=== PATIENT | female | born 1930 | race Caucasian/White ===

== ENCOUNTER 2016-11-05 12:21 | Emergency (ER) | payer MEDICARE ==
[2016-11-05 12:31] VITALS: TEMP 98.1; BMI 30.2
[2016-11-05] MEDS ORDERED: NS 1,000 ML IV ONE (12:35)
[2016-11-05] MEDS ORDERED: ONDANSETRON HCL 4 MG/2 ML VIAL IV ONE (12:35)
[2016-11-05 12:58] LABS: AUTOMATED BASOPHIL 0.6 % (0-2); AUTOMATED EOSINOPHIL 0.2 % (0-5); AUTOMATED LYMPH 14.4 % (17-44); AUTOMATED MONOCYTE 5.9 % (3-10); AUTOMATED NEUTROPHIL 78.9 % (45-76); MPV 8.4 fL (7.4-10.4)
--- NOTE | 2016-11-05 13:09 | DIRPT ---
CLINICAL DATA: Weakness. EXAM: PORTABLE CHEST 1 VIEW COMPARISON: 09/23/2016 FINDINGS: The heart size and mediastinal contours are within normal limits. There is no evidence of pulmonary edema, consolidation, pneumothorax, nodule or pleural fluid. The visualized skeletal structures are unremarkable. IMPRESSION: No active disease. Electronically Signed By: Jose L Nixon M.D. On: 11/05/2016 13:07
[2016-11-05 13:16] LABS: CALC CORRECTED 9.2 MG/DL (8.4-10.2); CALCIUM 8.9 MG/DL (8.4-10.2); CREATININE 1.1 MG/DL (0.52-1.04); TOTAL PROTEIN 7.1 G/DL (6.3-8.2)
[2016-11-05 13:20] LABS: PARTIAL THROMB. TIME 21.1 SEC (22-35); PT-INR 1.1
[2016-11-05] MEDS ORDERED: LABETALOL 20 MG/4 ML SYRINGE IV ONE (13:20)
--- NOTE | 2016-11-05 13:22 | EDPRACDOC ---
- General Information Chief Complaint: Generalized Weakness Stated Complaint: WEAKNESS/HYPERTENSION Time Seen by Provider: 11/05/16 12:31 Information Source: Patient, Web Site Developer Mode Of Arrival: Ambulance Home Medications: Home Medications Omeprazole 40 mg PO DAILY 04/28/16 Pramipexole Di-HCl [Mirapex] 0.25 mg PO TID 04/28/16 Ranitidine HCl 300 mg PO DAILY 04/28/16 Estrogens,Conjugated [Premarin] 0.625 mg PO DAILY 09/06/16 Furosemide [Lasix] 20 mg PO DAILY #30 tablet 09/19/16 CloNIDine (Antihypertensive) [Catapres] 0.1 mg PO DAILY PRN #30 tab 11/05/16 Desvenlafaxine Succinate [Pristiq] 50 mg PO DAILY 11/05/16 Etodolac 400 mg PO BID 11/05/16 Losartan/Hydrochlorothiazide [Losartan-Hctz 50-12.5 mg Tab] 1 tab PO DAILY 11/05 Megestrol Acetate [Megace] 40 mg PO DAILY #30 tab 11/05/16 Mirtazapine 15 mg PO QHS PRN 11/05/16 Allergies/Adverse Reactions: Allergies Allergy/AdvReac Type Severity Reaction Status Date / Time codeine Allergy Nausea/Vomi Verified 11/05/16 12:27 ting Penicillins Allergy Anaphylaxis Verified 11/05/16 12:27 * Sulfa (Sulfonamide Allergy Anaphylaxis Verified 11/05/16 12:27 Antibiotics) * - History of Present Illness Onset: several days Exact Onset of Symptoms: Unknown HPI: PT ADMITTED TO THE HOSPITAL ON 09/06 FOR A SBO. SHE HAD AN EXPL LAP WITH [facility]JAN ON 09/11. SHE WAS D/C'D ON 09/19. SHE WAS RE-ADMITTED ON 09/23 FOR CELLULITIS. SHE WAS D/C'D ON 09/29. [facility] PT SAID THAT SHE HAS BEEN VERY WEAK FOR THE PAST FEW DAYS. PT SAID THAT SHE HAS HAD N/V. PT RECENTLY RELEASED FROM [facility] ON 10/26. PT SAID SHE'S BEEN ABLE TO TAKE HER MEDS, BUT BP HAS REMAINED HIGH. PT DOES NOT WANT ANYTHING FOR NAUSEA NOW. Symptoms Started: Reports: Gradually Symptoms Description: Constant Weakness: Bilateral: Generalized Symptom Severity: Reports: Unable to performs ADL's Associated signs and symptoms:: Reports: Nausea ED Past Medical History - Patient Medical History Cardiac History: Reports: Hypertension, Congestive Heart Failure (remote history. No echocardiogram available.), Valvular Heart Disease Respiratory History: Reports: Pneumonia GI/ History: Reports: Urinary Tract Infection, Gastroesophageal Reflux Musculoskeletal History: Reports: Arthritis (FINGERS), Osteoarthritis Psychological History: Reports: Anxiety. Denies: Depression, Substance Use Disorder Surgical History: Reports: Cholecystectomy, Hysterectomy (Oophorectomy), Tonsillectomy/Adnoidectomy, Other (Bilateral knee replacements. Ex-lap for SBO Dr. Ackerman 08/2016.) - Family Medical History Reports: Cancer (2 sisters- breast ca). Denies: Hypertension, Diabetes, Stroke , Cardiac Disorders - Social Medical History Smoking Status: Never smoker Social History: Denies: Substance Use Disorder ETOH: None Substance Abuse: None Lives In: Home EDM Review of Systems - Review of Systems ROS Negative Except as Marked: Yes All systems reviewed and were negative except as marked Constitutional: Fatigue, Loss of Appetite, Weakness Gastrointestinal: Nausea, Vomiting - Physical Exam Constitutional: Alert (Awake), No apparent distress Oriented to: Time, Person, Place Last recorded Vital Signs: Last Vital Signs Temp 98.1 F 11/05/16 12:27 Pulse 83 11/05/16 12:27 Resp 18 11/05/16 12:27 BP 213/86 H 11/05/16 12:32 Pulse Ox 91 11/05/16 12:27 Oxygen Pulse Oxygen Saturation 91 O2 Device Room Air Oxygen Flow Rate Fraction of Inspired Oxygen ( FIO2) - HEENT Head: Normal ( normocephalic) Eye Exam: Normal (PERRL, EOMI, Sclera white) Oropharynx: Membranes Dry ENT EAC: Normal TMJ: Normal Nose: No Symptoms Reported (septum midline) Neck: Normal (FROM, trachea at midline) - Respiratory/Cardiovascular Respiratory: Normal - CTA (BBS clear to auscultation without adventitious sounds ) Cardiovascular: Normal (RRR without murmur, gallop or rub) - GI Auscultation: Normal (NABS) Palpation: Normal (Soft,No rebound or guarding, non distended) Tenderness: Non tender Tompkins's Sign: Negative - Musculoskeletal Back: Normal (Non-Tender) Extremities: Normal (Normal tone, Pulses 2+ No cyanosis or edema, FROM) - Integumentary Skin: Normal, Warm, Dry Lymphatics: Normal (no adenopathy) - Neurologic Memory Impaired: Normal Motor Function: Normal (Normal tone, Pulses 2+ No cyanosis or edema, FROM) Cranial Nerve: Normal (CN II-X11 intact sensation, strength 5/5) Cerebellar: Normal Mood Description: Normal Thought: Coherent Perception: Normal - Results 11/05/16 12:50 11/05/16 12:50 WBC 13.5 xk/uL (3.8-10.8) H 11/05/16 12:50 RBC 3.70 xM/uL (4.20-5.40) L 11/05/16 12:50 Hgb 11.5 g/dL (12.0-16.0) L 11/05/16 12:50 Hct 35.3 % (36-47) L 11/05/16 12:50 MCV 96 fL (81-99) 11/05/16 12:50 MCH 31.1 pg (27-32) 11/05/16 12:50 MCHC 32.6 g/dl (33-36) L 11/05/16 12:50 RDW 20.5 % (11.5-14.5) H 11/05/16 12:50 Plt Count 118 xk/uL (130-400) L 11/05/16 12:50 MPV 8.4 fL (7.4-10.4) 11/05/16 12:50 Neut % (Auto) 78.9 % (45-76) H 11/05/16 12:50 Lymph % (Auto) 14.4 % (17-44) L 11/05/16 12:50 [place] % (Auto) 5.9 % (3-10) 11/05/16 12:50 Eos % (Auto) 0.2 % (0-5) 11/05/16 12:50 Baso % (Auto) 0.6 % (0-2) 11/05/16 12:50 Absolute Neuts (auto) 10.53 xk/uL (1.7-8.2) H 11/05/16 12:50 Absolute Lymphs (auto) 1.89 xk/uL (0.65-4.75) 11/05/16 12:50 Sodium 140 mEq/L (137-146) 11/05/16 12:50 Potassium 4.6 mEq/L (3.5-5.1) 11/05/16 12:50 Chloride 106 mEq/L (98-107) 11/05/16 12:50 Carbon Dioxide 24 mMOL/L (22-33) 11/05/16 12:50 Anion Gap 15 mEq/L (8-16) 11/05/16 12:50 BUN 31 MG/DL (7-17) H 11/05/16 12:50 Creatinine 1.10 MG/DL (0.52-1.04) H 11/05/16 12:50 Estimated GFR (MDRD) 47 mL/min (>=60) L 11/05/16 12:50 Glucose 93 MG/DL (70-99) 11/05/16 12:50 Calculated Osmolality 276 MOs/Kg (270-290) 11/05/16 12:50 Calcium 8.9 MG/DL (8.4-10.2) 11/05/16 12:50 Corrected Calcium 9.2 MG/DL (8.4-10.2) 11/05/16 12:50 Total Bilirubin 0.8 MG/DL (0.2-1.3) 11/05/16 12:50 AST 29 IU/L (14-36) 11/05/16 12:50 ALT 30 IU/L (9-52) 11/05/16 12:50 Alkaline Phosphatase 99 IU/L (55-165) 11/05/16 12:50 Total Protein 7.1 G/DL (6.3-8.2) 11/05/16 12:50 Albumin 3.7 G/DL (3.5-5.0) 11/05/16 12:50 Lipase Cancelled 11/05/16 12:50 Lab Results 11/05/16 11/05/16 11/05/16 12:50 12:50 12:50 WBC 13.5 H RBC 3.70 L Hgb 11.5 L Hct 35.3 L MCV 96 MCH 31.1 MCHC 32.6 L RDW 20.5 H Plt Count 118 L MPV 8.4 Neut % (Auto) 78.9 H Lymph % (Auto) 14.4 L [place] % (Auto) 5.9 Eos % (Auto) 0.2 Baso % (Auto) 0.6 Absolute Neuts (auto) 10.53 H Absolute Lymphs (auto) 1.89 Sodium 140 Potassium 4.6 Chloride 106 Carbon Dioxide 24 Anion Gap 15 BUN 31 H Creatinine 1.10 H Estimated GFR (MDRD) 47 L Glucose 93 Calculated Osmolality 276 Calcium 8.9 Corrected Calcium 9.2 Total Bilirubin 0.8 AST 29 ALT 30 Alkaline Phosphatase 99 Total Protein 7.1 Albumin 3.7 Lipase Cancelled - EKG EKG #1 EKG Time: 12:30 -: Yes EKG interpreted by me Rate: bpm: 88 [place]: Normal Rhythm: NSR Block: None Hypertrophy: None ST: Normal Comparison: 09/23/16 - Diagnostic Imaging Chest Image interpreted by: Radiologist No active disease. - Additional Information PT D/W SW WHO WILL HELP ARRANGE HOME PT. ALSO ASKS FOR SOMETHING TO HELP WITH PT'S APPETITE. Decision Time to Discharge: 14:53 - Departure Yes I personally saw and evaluated the patient. Disposition: Home Condition: Fair Final Diagnosis: Failure to thrive, Dehydration, Hypertension, Anorexia Instructions: Weakness (General), Chronic Hypertension (ED) Education/Counseling Given To: Patient, Family Member Education/Counseling Given Regarding: Diagnosis, Treatment, Follow Up Prescriptions: CloNIDine (Antihypertensive) [Catapres] 0.1 mg PO DAILY PRN #30 tab PRN Reason: Sbp Above 160 Megestrol Acetate [Megace] 40 mg PO DAILY #30 tab
--- NOTE | 2016-11-05 14:26 | DIRPT ---
CLINICAL DATA: Weakness and hypertension. EXAM: CT ABDOMEN AND PELVIS WITHOUT CONTRAST TECHNIQUE: Multidetector CT imaging of the abdomen and pelvis was performed following the standard protocol without IV contrast. COMPARISON: 09/06/2016 FINDINGS: Bowel appears unremarkable with resolution of previously imaged small bowel obstruction. No dilated bowel loops or evidence of inflammatory process. No free air, free fluid or abscess identified. Unenhanced appearance of the liver, pancreas, spleen, adrenal glands and kidneys are unremarkable. The gallbladder has been removed. No hernias, masses or enlarged lymph nodes are seen. The bladder is unremarkable. The lumbar spine demonstrates stable spondylosis with associated rightward convex scoliosis and anterolisthesis of L4 on L5 by approximately 6 mm and anterolisthesis of L5 on S1 of approximately 10 mm. IMPRESSION: No acute findings. Resolution of previously imaged small bowel obstruction. Electronically Signed By: Jose L Nixon M.D. On: 11/05/2016 14:23
[2016-11-05 14:31] LABS: LEUKOCYTES/URINE NEG (NEGATIVE); NITRITE/URINE NEG (NEGATIVE); RBC/URINE 0-2 (0-5); URINE OCCULT BLOOD NEG (NEG/TRACE)
[2016-11-05 15:25] VITALS: BP 176/74; PULSE 84
== END 2016-11-05 15:25 | disposition home or self-care (01) ==
LOC: ED 12:21
DX: R62.7 Adult failure to thrive (principal); E86.0 Dehydration; I10 Essential (primary) hypertension; R63.0 Anorexia; Z79.899 Other long term (current) drug therapy
CPT/HCPCS: 36415; 71010; 74176; 80053; 81001; 83690; 84484; 85025; 85610; 85730; 87086; 93005; 99284; A9270; J3490

== ENCOUNTER 2016-11-11 10:41 | Emergency (ER) | payer MEDICARE, OTHER ==
[2016-11-11 11:12] VITALS: TEMP 98.4; BMI 20.7
--- NOTE | 2016-11-11 11:28 | EDPRACDOC ---
- General Information Chief Complaint: Altered Mental Status Stated Complaint: STROKE Time Seen by Provider: 11/11/16 11:25 Information Source: Family, Manager Search Home Medications: Home Medications Omeprazole 40 mg PO DAILY 04/28/16 Pramipexole Di-HCl [Mirapex] 0.25 mg PO TID 04/28/16 Ranitidine HCl 300 mg PO DAILY 04/28/16 Estrogens,Conjugated [Premarin] 0.625 mg PO DAILY 09/06/16 Furosemide [Lasix] 20 mg PO DAILY #30 tablet 09/19/16 CloNIDine (Antihypertensive) [Catapres] 0.1 mg PO DAILY PRN #30 tab 11/05/16 Desvenlafaxine Succinate [Pristiq] 50 mg PO DAILY 11/05/16 Etodolac 400 mg PO BID 11/05/16 Losartan/Hydrochlorothiazide [Losartan-Hctz 50-12.5 mg Tab] 1 tab PO DAILY 11/05 Megestrol Acetate [Megace] 40 mg PO DAILY #30 tab 11/05/16 Mirtazapine 15 mg PO QHS PRN 11/05/16 Ciprofloxacin HCl [Cipro] 500 mg PO .BID X 7D 11/11/16 Allergies/Adverse Reactions: Allergies Allergy/AdvReac Type Severity Reaction Status Date / Time codeine Allergy Nausea/Vomi Verified 11/05/16 12:27 ting Penicillins Allergy Anaphylaxis Verified 11/05/16 12:27 * Sulfa (Sulfonamide Allergy Anaphylaxis Verified 11/05/16 12:27 Antibiotics) * - History of Present Illness Onset: 3 days Exact Onset of Symptoms: Unknown HPI: NOT ACTING RIGHT FOR MANY WEEKS. SEEN HERE ON 11/05; SEE RECORD ON THAT DATE INCLUDING CT OF ABDOMEN. BEING TX FOR UTI WITH CIPRO. PT DENIES PAIN. PT SEEN AT HOME BY DR. YI ON SATURDAY AND GIVEN MEDS FOR UTI Symptoms began: Gradually Duration: Since Onset Symptoms Currently: Reports: Improved Altered Quality: Reports: Change in Behavior Altered Severity: Reports: Mild Recent Symptoms of: Reports: None Relevant History: Reports: None - Treatment Prior to ED Arrival Reported Medications/Treatment [facility] Treatment BLS IV No ED Past Medical History - History Reviewed Yes Nurses notes reviewed and agree except as marked - Patient Medical History Cardiac History: Reports: Hypertension, Congestive Heart Failure (remote history. No echocardiogram available.), Valvular Heart Disease Respiratory History: Reports: Pneumonia GI/ History: Reports: Urinary Tract Infection, Gastroesophageal Reflux Musculoskeletal History: Reports: Arthritis (FINGERS), Osteoarthritis Psychological History: Reports: Anxiety. Denies: Depression, Substance Use Disorder Systemic History: Denies: Cancer Surgical History: Reports: Cholecystectomy, Hysterectomy (Oophorectomy), Tonsillectomy/Adnoidectomy, Other (Bilateral knee replacements. Ex-lap for SBO Dr. Ackerman 08/2016.) - Family Medical History Reports: Cancer (2 sisters- breast ca). Denies: Hypertension, Diabetes, Stroke , Cardiac Disorders - Social Medical History Smoking Status: Never smoker Social History: Denies: Substance Use Disorder EDM Review of Systems - Review of Systems ROS Negative Except as Marked: Yes All systems reviewed and were negative except as marked - Physical Exam Constitutional: Alert (Awake), No apparent distress Oriented to: Time, Person, Place Last recorded Vital Signs: Last Vital Signs Temp 98.4 F 11/11/16 11:04 Pulse 79 11/11/16 11:12 Resp 16 11/11/16 11:12 BP 184/81 H 11/11/16 11:12 Pulse Ox 97 11/11/16 11:12 Oxygen Pulse Oxygen Saturation 97 O2 Device Oxygen Flow Rate Fraction of Inspired Oxygen ( FIO2) - HEENT Head: Normal ( normocephalic) Eye Exam: Normal (PERRL, EOMI, Sclera white) Oropharynx: Normal (Pharynx:Moist without exudate,Gums-no swelling) ENT EAC: Normal TMJ: Normal Nose: No Symptoms Reported (septum midline) Neck: Normal (FROM, trachea at midline) - Respiratory/Cardiovascular Respiratory: Normal - CTA (BBS clear to auscultation without adventitious sounds ) Cardiovascular: Normal (RRR without murmur, gallop or rub) - GI Auscultation: Normal (NABS) Palpation: Normal (Soft,No rebound or guarding, non distended) Tenderness: Non tender Tompkins's Sign: Negative - Musculoskeletal Back: Normal (Non-Tender) Extremities: Normal (Normal tone, Pulses 2+ No cyanosis or edema, FROM) - Integumentary Skin: Normal, Warm, Dry Lymphatics: Normal (no adenopathy) - Neurologic Memory Impaired: Normal Motor Function: Normal (Normal tone, Pulses 2+ No cyanosis or edema, FROM) Cranial Nerve: Normal (CN II-X11 intact sensation, strength 5/5) Cerebellar: Normal Mood Description: Normal Perception: Normal - Results 11/11/16 11:00 11/11/16 11:00 - EKG EKG #1 Agency: Normal Rhythm: NSR Block: None Hypertrophy: None ST: Normal Decision Time to Discharge: 14:45 - Departure Yes I personally saw and evaluated the patient. Disposition: Home Condition: Good Final Diagnosis: AMS, UTI Instructions: Urinary Tract Infection in Women (ED) Education/Counseling Given To: Patient, Family Member Education/Counseling Given Regarding: Diagnosis, Treatment, Prognosis Referrals: None,No Provider [Primary Care Provider] - One Week Isidro Yi MD [NonStaff] - One Week Additional Instructions: CONTINUE CURRENT ABX
[2016-11-11 11:47] LABS: AUTOMATED BASOPHIL 0.5 % (0-2); AUTOMATED EOSINOPHIL 0.9 % (0-5); AUTOMATED LYMPH 24.9 % (17-44); AUTOMATED MONOCYTE 4.8 % (3-10); AUTOMATED NEUTROPHIL 68.9 % (45-76); MPV 8.6 fL (7.4-10.4)
[2016-11-11 12:11] LABS: BLOOD UREA NITROGEN 40 MG/DL (7-17); CALCIUM 8.9 MG/DL (8.4-10.2); CALCULATED OSMOLALITY 281 MOs/Kg (270-290); CHLORIDE 108 mEq/L (98-107); GLUCOSE 94 MG/DL (70-99); SODIUM LEVEL 141 mEq/L (137-146); TOTAL PROTEIN 7.1 G/DL (6.3-8.2)
[2016-11-11 13:29] VITALS: BP 148/67; PULSE 98
[2016-11-11 14:04] LABS: WBC/URINE TNTC (0-5)
[2016-11-11 14:12] LABS: LEUKOCYTES/URINE 2+ (NEGATIVE); NITRITE/URINE NEG (NEGATIVE); URINE OCCULT BLOOD NEG (NEG/TRACE)
--- NOTE | 2016-11-11 14:33 | DIRPT ---
CLINICAL DATA: Altered mental status, currently being treated for UTI EXAM: CT HEAD WITHOUT CONTRAST TECHNIQUE: Contiguous axial images were obtained from the base of the skull through the vertex without intravenous contrast. COMPARISON: None FINDINGS: Generalized atrophy. Normal ventricular morphology. No midline shift or mass effect. Small vessel chronic ischemic changes of deep cerebral white matter. No intracranial hemorrhage, mass lesion, or acute infarction. Visualized paranasal sinuses and mastoid air cells clear. Bones unremarkable. IMPRESSION: Atrophy with small vessel chronic ischemic changes of deep cerebral white matter. No acute intracranial abnormalities. Electronically Signed By: Devan Romero M.D. On: 11/11/2016 14:29
== END 2016-11-11 15:00 | disposition home or self-care (01) ==
LOC: ED 10:41
DX: N39.0 Urinary tract infection, site not specified (principal); R41.82 Altered mental status, unspecified
CPT/HCPCS: 36415; 70450; 80053; 81001; 84484; 85025; 93005; 99284

== ENCOUNTER 2016-11-20 11:23 | Inpatient (IN) | payer MEDICARE ==
[2016-11-20 11:23] VITALS: BMI 24.8
--- NOTE | 2016-11-20 11:40 | EDPRACDOC ---
- General Information Chief Complaint: Generalized Weakness Stated Complaint: WEAKNESS Time Seen by Provider: 11/20/16 11:30 Home Medications: Home Medications Omeprazole 40 mg PO DAILY 04/28/16 Pramipexole Di-HCl [Mirapex] 0.25 mg PO TID 04/28/16 Ranitidine HCl 300 mg PO DAILY 04/28/16 Estrogens,Conjugated [Premarin] 0.625 mg PO DAILY 09/06/16 Furosemide [Lasix] 20 mg PO DAILY #30 tablet 09/19/16 CloNIDine (Antihypertensive) [Catapres] 0.1 mg PO DAILY PRN #30 tab 11/05/16 Desvenlafaxine Succinate [Pristiq] 50 mg PO DAILY 11/05/16 Etodolac 400 mg PO BID 11/05/16 Losartan/Hydrochlorothiazide [Losartan-Hctz 50-12.5 mg Tab] 1 tab PO DAILY 11/05 Megestrol Acetate [Megace] 40 mg PO DAILY #30 tab 11/05/16 Mirtazapine 15 mg PO QHS PRN 11/05/16 Allergies/Adverse Reactions: Allergies Allergy/AdvReac Type Severity Reaction Status Date / Time codeine Allergy Nausea/Vomi Verified 11/20/16 11:38 ting Penicillins Allergy Anaphylaxis Verified 11/20/16 11:38 * Sulfa (Sulfonamide Allergy Anaphylaxis Verified 11/20/16 11:38 Antibiotics) * - History of Present Illness Onset: 3 days Exact Onset of Symptoms: Unknown Date Symptoms Started: 11/16/16 HPI: PATIENT WAS RECENTLY HOSPITALIZED WITH PNEUMONIA AND SMALL BOWEL OBSTRUCTION. PATIENT HAS CONTINUED TO HAVE DECREASING STRENGTH AND GENERALIZED WEAKNESS. NO FEVER. NO N/V. FAMILY NOTES INCRESING CONFUSION Symptoms Started: Reports: Gradually Symptoms Description: Constant Weakness: Bilateral: Generalized Symptom Severity: Reports: Unable to performs ADL's ED Past Medical History - History Reviewed Yes Nurses notes reviewed and agree except as marked Travel Outside of [place] in the Last 3 Months?: No - Patient Medical History Cardiac History: Reports: Hypertension, Congestive Heart Failure (remote history. No echocardiogram available.), Valvular Heart Disease Respiratory History: Reports: Pneumonia GI/ History: Reports: Urinary Tract Infection, Gastroesophageal Reflux Musculoskeletal History: Reports: Arthritis (FINGERS), Osteoarthritis Psychological History: Reports: Anxiety. Denies: Depression, Substance Use Disorder Systemic History: Denies: Cancer Surgical History: Reports: Cholecystectomy, Hysterectomy (Oophorectomy), Tonsillectomy/Adnoidectomy, Other (Bilateral knee replacements. Ex-lap for SBO Dr. Ackerman 08/2016.) - Family Medical History Reports: Cancer (2 sisters- breast ca). Denies: Hypertension, Diabetes, Stroke , Cardiac Disorders - Social Medical History Smoking Status: Never smoker Social History: Denies: Substance Use Disorder ETOH: None Substance Abuse: None Lives With: Family Lives In: Home EDM Review of Systems - Review of Systems ROS Negative Except as Marked: Yes All systems reviewed and were negative except as marked Constitutional: Fatigue. negative: Chills, Fever, Loss of Appetite, Weakness Eyes: No Symptoms Reported. negative: Redness, Blurred Vision, Double Vision, Discharge, Pain, Light Sensitive, Photophobia Ears: No Symptoms Reported. negative: Pain, Hearing Loss, Drainage, Ear Pulling Throat: No Symptoms Reported. negative: Pain, Swelling Nose: No Symptoms Reported. negative: Congestion, Bleeding, Discharge, Injection, Swelling, Deformity, Ecchymosis, Tender, Abrasion, Laceration Mouth: No Symptoms Reported. negative: Pain, Drooling Respiratory: Cough, Shortness of Breath. negative: Barky Cough, Brassy Cough, Hemoptysis, Wheezing Cardiovascular: No Symptoms Reported. negative: Chest Pain, Palpitations, Syncope, Edema, Orthopnea, PND, Skin Mottling, Cyanosis Gastrointestinal: No Symptoms Reported. negative: Pain, Constipation, Nausea, Vomiting, Diarrhea, Melena, Formula Intolerance Genitourinary: No Symptoms Reported. negative: Dysuria, Hematuria, Frequency, Discharge, Bleeding, Testicular Pain, Neurological: No Symptoms Reported. negative: Headache, Dizziness, Seizure, Numbness, Weakness, Speech Difficulty, Gait Difficulty Musculoskeletal: No Symptoms Reported. negative: Neck, Chestwall, Ribs, Back, Shoulder, Arm, Elbow, Forearm, Wrist, Hand, Pelvis, Hip, Femur, Knee, Leg, Ankle , Foot Integumentary: No Symptoms Reported. negative: Itching, Rash, Bruising, Wound Allergic/Immunologic: No Symptoms Reported. negative: Hives, Itching Hematologic: No Symptoms Reported. negative: Lymphadenopathy, Easy Bruising, Easy Bleeding Endocrine: No Symptoms Reported. negative: Weight Gain, Weight Loss Psychiatric: No Symptoms Reported. negative: Anxiety, Depression, Hallucinations, Insomnia, Suicidal - Physical Exam Constitutional: Alert (Awake), Confused Oriented to: Person, Place Last recorded Vital Signs: Oxygen Pulse Oxygen Saturation O2 Device Oxygen Flow Rate Fraction of Inspired Oxygen ( FIO2) - HEENT Head: Normal ( normocephalic) Eye Exam: Normal (PERRL, EOMI, Sclera white) Oropharynx: Membranes Dry Tympanic Membrane: Normal ENT EAC: Normal TMJ: Normal Nose: No Symptoms Reported (septum midline) Neck: Normal (FROM, trachea at midline) - Respiratory/Cardiovascular Respiratory: Normal - CTA (BBS clear to auscultation without adventitious sounds ) Cardiovascular: Normal (RRR without murmur, gallop or rub) - GI Auscultation: Normal (NABS) Palpation: Normal (Soft,No rebound or guarding, non distended) Tenderness: Non tender Tompkins's Sign: Negative - Bladder: Normal - Musculoskeletal Back: Normal (Non-Tender) Extremities: Normal (Normal tone, Pulses 2+ No cyanosis or edema, FROM) - Integumentary Skin: Warm, Dry Lymphatics: Normal (no adenopathy) - Neurologic Memory Impaired: Short-term Motor Function: Normal (Normal tone, Pulses 2+ No cyanosis or edema, FROM) Cranial Nerve: Normal (CN II-X11 intact sensation, strength 5/5) Cerebellar: Normal Mood Description: Normal Thought: Coherent Perception: Normal - Results 11/20/16 11:40 11/20/16 11:40 - EKG EKG #1 EKG Time: 11:39 -: Yes EKG interpreted by me Rate: bpm: 133 [place]: Normal Rhythm: NSR, PVCs Block: None Hypertrophy: None ST: Normal - Departure Yes I personally saw and evaluated the patient. Disposition: Admit IP To This Hospital Condition: Fair Final Diagnosis: Acute delirium UTI (urinary tract infection) Qualifiers: Urinary tract infection type: acute cystitis Hematuria presence: without hematuria Qualified Code(s): N30.00 - Acute cystitis without hematuria Instructions: Weakness (General), Urinary Tract Infection in Women (ED), Dysuria Education/Counseling Given To: Patient Education/Counseling Given Regarding: Diagnosis, Treatment, Prognosis Referrals: Isidro Yi MD [Primary Care Provider] - One Week Decision to Admit Time: 14:10 Decision to admit date: 11/20/16 Decision to admit: from ED - Physician Consulted Hospitalist Time Called: 14:10 Provider Called: Tian Owens Time Educational Coordinator Returned Call: 14:10
[2016-11-20 11:47] LABS: ALLEN'S TEST PASS; BEb -7.5 (+/- 2); TCO2 16.3 MMOL/L (23-27)
[2016-11-20 11:48] LABS: ABG Draw Site Right Radial
[2016-11-20 11:52] LABS: AUTOMATED BASOPHIL 0.5 % (0-2); AUTOMATED EOSINOPHIL 0.8 % (0-5); AUTOMATED LYMPH 25.6 % (17-44); AUTOMATED MONOCYTE 5.3 % (3-10); AUTOMATED NEUTROPHIL 67.8 % (45-76)
[2016-11-20 12:05] LABS: PARTIAL THROMB. TIME 21.6 SEC (22-35)
[2016-11-20 12:06] LABS: BLOOD UREA NITROGEN 36 MG/DL (7-17); CALC CORRECTED 9.7 MG/DL (8.4-10.2); CALCIUM 9.3 MG/DL (8.4-10.2); CALCULATED OSMOLALITY 281 MOs/Kg (270-290); CHLORIDE 114 mEq/L (98-107); GLUCOSE 91 MG/DL (70-99); SODIUM LEVEL 142 mEq/L (137-146); TOTAL PROTEIN 6.8 G/DL (6.3-8.2)
--- NOTE | 2016-11-20 12:41 | DIRPT ---
CLINICAL DATA: Shortness of breath, pneumonia EXAM: PORTABLE CHEST 1 VIEW COMPARISON: 11/05/2016 FINDINGS: There is no focal parenchymal opacity. There is no pleural effusion or pneumothorax. The heart and mediastinal contours are unremarkable. There is an S-shaped scoliosis of the thoracolumbar spine. IMPRESSION: No active disease. Electronically Signed By: Yelitza Galaviz On: 11/20/2016 12:38
--- NOTE | 2016-11-20 12:46 | DIRPT ---
CLINICAL DATA: Weakness. Unable to ambulate. EXAM: CT HEAD WITHOUT CONTRAST TECHNIQUE: Contiguous axial images were obtained from the base of the skull through the vertex without intravenous contrast. COMPARISON: 11/11/2016 FINDINGS: The brainstem, cerebellum, cerebral peduncles, thalami, basal ganglia, basilar cisterns, and ventricular system appear within normal limits. No intracranial hemorrhage, mass lesion, or acute CVA. 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 IMPRESSION: 1. No acute intracranial findings are observed. 2. 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 Electronically Signed By: Ernesto Marino M.D. On: 11/20/2016 12:44
[2016-11-20 12:56] LABS: LEUKOCYTES/URINE 2+ (NEGATIVE); NITRITE/URINE NEG (NEGATIVE); URINE OCCULT BLOOD NEG (NEG/TRACE); WBC/URINE TNTC (0-5)
[2016-11-20] MEDS ORDERED: NS 1,000 ML IV ONE (14:11)
[2016-11-20] MEDS ORDERED: Levofloxacin 750 mg/150 ml D5W 750 MG/150 ML RTU IV ONE (14:11)
[2016-11-20] MEDS ORDERED: ACETAMINOPHEN 325 MG/TAB TABLET PO PRN (15:06)
[2016-11-20] MEDS ORDERED: GLUCOSE (ORAL GEL) 15 GM TUBE PO PRN (15:06)
[2016-11-20] MEDS ORDERED: TEMAZEPAM 15 MG CAP PO PRN (15:06)
[2016-11-20] MEDS ORDERED: ONDANSETRON HCL 4 MG/2 ML VIAL IV PRN (15:06)
[2016-11-20] MEDS ORDERED: BENZONATATE 100 MG PERLES PO PRN (15:06)
[2016-11-20] MEDS ORDERED: ACETAMINOPHEN 650 MG SUPP PR PRN (15:06)
[2016-11-20] MEDS ORDERED: DOCUSATE-SENNA CONCENTRATE TAB PO PRN (15:06)
[2016-11-20] MEDS ORDERED: GLUCAGON 1 MG VIAL SQ PRN (15:06)
[2016-11-20] MEDS ORDERED: DEXTROSE 25 GM/50 ML PFS IV PRN (15:06)
[2016-11-20] MEDS ORDERED: SODIUM CHLORIDE 0.9% 3 ML FLUSH FLUSH PRN (15:06)
[2016-11-20] MEDS ORDERED: SIMETHICONE 80 MG TAB PO PRN (15:06)
[2016-11-20] MEDS ORDERED: METOCLOPRAMIDE 10 MG/2 ML VIAL IV PRN (15:06)
[2016-11-20] MEDS ORDERED: MIRTAZAPINE 15 MG TAB PO PRN (15:11)
--- NOTE | 2016-11-20 15:13 | HISTPHYS ---
- Chief Complaint WEAKNESS, CONFUSION - History of Present Illness Rosemary Mckinley is a frail elderly woman who was only discharged from [facility] one week ago after rehabilitation following hospitalization for cellulitis and sepsis. She has had a series of unfortunate events recently: in August of 2016 she had a small bowel obstruction and was hospitalized, had an exploratory laparotomy and lysis of adhesions by Dr. Ackerman and was discharged to [facility] for rehabilitation. She was only there for four days , when she developed pneumonia, and had to return for IV antibiotics. She was treated here for approximately two weeks, and returned to [facility] again. Then in late September, she developed cellulitis of her right arm from an IV that got infected, and had to return to the hospital again for treatment. She was again discharged to short-term rehabilitation. She has only been home a few days, and her noted that she is getting more lethargic, forgetful, and is now unable to walk. She was ambulating with a walker when she first came home. She suffers with mild dementia, and he is her molding line operator, but is himself ambulation-impaired and depends on a wheelchair. Since early August she has only been at home less than two weeks. The rest of the time she has either been hospitalized or in rehabilitation. I discussed the option of extermination inspector placement with her spouse, but he is still of the opinion that if she can walk, he can take care of her at home. He would also like her to remain a full code in spite of her multiple co-morbidities. - Medical History Cardiac History: Reports: Hypertension, Congestive Heart Failure (remote history. No echocardiogram available.), Valvular Heart Disease Respiratory History: Reports: Pneumonia GI/ History: Reports: Urinary Tract Infection, Gastroesophageal Reflux, Diverticulosis (small bowel obstrubtion). Denies: Renal Disease, Renal Failure Musculoskeletal History: Reports: Arthritis (FINGERS), Osteoarthritis Systemic History: Denies: Cancer Neurological History: Reports: Dementia Psychological History: Reports: Anxiety. Denies: Depression, Substance Use Disorder - Surgical History Reports: Cholecystectomy, Hysterectomy (Oophorectomy), Tonsillectomy/ Adnoidectomy, Other (Bilateral knee replacements. Ex-lap for SBO Dr. Ackerman .) - Medictions/Allergies Allergies codeine Allergy (Verified 11/20/16 11:38) Nausea/Vomiting Penicillins Allergy (Verified 11/20/16 11:38) Anaphylaxis* Sulfa (Sulfonamide Antibiotics) Allergy (Verified 11/20/16 11:38) Anaphylaxis* Current Medication List: Reviewed Home Medications Omeprazole 40 mg PO DAILY 04/28/16 Pramipexole Di-HCl [Mirapex] 0.25 mg PO TID 04/28/16 Ranitidine HCl 300 mg PO DAILY 04/28/16 Estrogens,Conjugated [Premarin] 0.625 mg PO DAILY 09/06/16 Furosemide [Lasix] 20 mg PO DAILY #30 tablet 09/19/16 CloNIDine (Antihypertensive) [Catapres] 0.1 mg PO DAILY PRN #30 tab 11/05/16 Desvenlafaxine Succinate [Pristiq] 50 mg PO DAILY 11/05/16 Etodolac 400 mg PO BID 11/05/16 Losartan/Hydrochlorothiazide [Losartan-Hctz 50-12.5 mg Tab] 1 tab PO DAILY 11/05 Megestrol Acetate [Megace] 40 mg PO DAILY #30 tab 11/05/16 Mirtazapine 15 mg PO QHS PRN 11/05/16 - Family History Reports: Cancer (2 sisters- breast ca). Denies: Hypertension, Diabetes, Stroke , Cardiac Disorders - Social History Travel Outside of [place] in the Last 3 Months?: No Lives: with Spouse Smoking Status: Never smoker Social History: Denies: Alcohol Use, Substance Use Disorder - Review of Systems Constitutional: Fever, Fatigue, Loss of Appetite, Weakness. negative: Chills Eyes: No Symptoms Reported, Cataracts Ears: Hearing Loss Nose: No Symptoms Reported Mouth: Denture, Dry Mouth Throat/Neck: No Symptoms Reported Respiratory: Cough, Shortness of Breath Cardiovascular: Edema, Palpitations, Syncope Gastrointestinal: Constipation, Heartburn, Appetite Changes Neurological: Dizziness, Gait Difficulty, Weakness, Memory Changes Musculoskeletal:: Osteoarthritis, Stiffness, Weakness Integumentary: No Symptoms Reported Allergic/Immunologic: No Symptoms Reported Hematologic: Anemia, Past Transfusions Endocrine: Weight Loss, Cold Intolerance, Osteoporosis Psychiatric: Depression - Physical Exam Vital Signs: Initial Vitals Temperature 97.8 F 11/20/16 11:38 Pulse Rate 76 11/20/16 11:38 Respiratory Rate 16 11/20/16 11:38 Blood Pressure 170/74 11/20/16 11:38 Pulse Oxygen Saturation 97 11/20/16 11:38 Constitutional: Confused, Decreased Consciousness, Somnolent Oriented to: Person, Place - HEENT Head: Normal Eye: Normal (PERRL:EOMI) Oropharynx: Membranes Dry. negative: Drooling, Exudate, Red Tympanic Membrane: Normal, Dull ENT EAC: negative: Cerumen Nose: No Symptoms Reported. negative: Bleeding, Congestion, Discharge Respiratory: Normal - CTA, Diminished. negative: Tachypnea, Wheezes Cardiovascular: Tachycardia - GI Auscultation: Normal Palpation: Normal (soft, nondistended, no mass,). negative: Enlarged liver, Enlarged spleen, Fluid Wave Tenderness: Non tender. negative: Guarding, Rebound, Rigidity Tompkins's Sign: Negative Rectal Exam: Deferred Stool: Brown - Exam Deferred: Yes - Musculoskeletal Back: Normal Extremities: Normal Spine: non-tender, normal alignment, normal inspection. negative: muscle spasm - Integumentary Skin: Warm, Dry. negative: Rash Lymphatics: Normal - Neurologic Memory Impaired: Short-term Motor Function: Abnormal (strength decreased) Cranial Nerve: Normal Cerebellar: Normal Mood Description: Depressed, Flat Thought: Coherent (forgetful) Perception: Normal - Focused CV Perfusion Exam Date exam occurred: 11/20/16 Time of Exam: 15:00 Vital Signs: Last Vital Signs Temp 97.8 F 11/20/16 11:38 Pulse 79 11/20/16 13:08 Resp 18 11/20/16 13:08 BP 180/72 H 11/20/16 13:08 Pulse Ox 98 11/20/16 13:08 Respiratory: Chest non-tender, Lungs clear, No respiratory distress Cardiovascular/Chest: Tachycardia Peripheral pulses: Diminished: Posterior tibialis (R), Posterior tibialis (L), Full: Radial (R), Radial (L), Dorsalis pedis (R), Dorsalis pedis (L) Skin Color: Normal Skin Turgor: <3 Seconds, Tight - Lab Results Laboratory Tests 11/20/16 11/20/16 11/20/16 11:40 11:40 11:40 WBC 12.4 H Hgb 9.9 L Hct 31.0 L Plt Count 146 PT 10.7 INR 1.0 APTT 21.6 L pH pCO2 pO2 HCO3 Total CO2 Base Excess FiO2 % Sodium 142 Potassium 4.4 Chloride 114 H Carbon Dioxide 16 L Anion Gap 16 BUN 36 H Creatinine 1.10 H Estimated GFR (MDRD) 47 L Glucose 91 POC Capillary Glucose Calculated Osmolality 281 Lactic Acid Corrected Calcium 9.7 Total Bilirubin 0.7 Troponin I < 0.01 Urine Color Urine Clarity Urine pH Ur Specific Sheridan Urine Protein Urine Nitrite Ur Leukocyte Esterase Urine RBC Urine WBC 11/20/16 11/20/16 11/20/16 11:40 11:40 12:30 WBC Hgb Hct Plt Count PT INR APTT pH 7.400 pCO2 25.0 L pO2 88.0 HCO3 15.5 L Total CO2 16.3 L Base Excess -7.5 L FiO2 % 21% Sodium Potassium Chloride Carbon Dioxide Anion Gap BUN Creatinine Estimated GFR (MDRD) Glucose POC Capillary Glucose Calculated Osmolality Lactic Acid 0.8 Corrected Calcium Total Bilirubin Troponin I Urine Color Yellow Urine Clarity Cldy Urine pH 5.0 Ur Specific Sheridan 1.020 Urine Protein 1+ H Urine Nitrite Neg Ur Leukocyte Esterase 2+ H Urine RBC 10-20 H Urine WBC Tntc H 11/20/16 11/20/16 11/20/16 14:40 17:30 17:44 WBC Hgb Hct Plt Count PT INR APTT pH pCO2 pO2 HCO3 Total CO2 Base Excess FiO2 % Sodium Potassium Chloride Carbon Dioxide Anion Gap BUN Creatinine Estimated GFR (MDRD) Glucose POC Capillary Glucose 110 H Calculated Osmolality Lactic Acid Corrected Calcium Total Bilirubin Troponin I 0.01 0.01 Urine Color Urine Clarity Urine pH Ur Specific Sheridan Urine Protein Urine Nitrite Ur Leukocyte Esterase Urine RBC Urine WBC - Diagnostic Findings CXR:FINDINGS: There is no focal parenchymal opacity. There is no pleural effusion or pneumothorax. The heart and mediastinal contours are unremarkable. There is an S-shaped scoliosis of the thoracolumbar spine. IMPRESSION: No active disease. Electronically Signed By: Yelitza Galaviz On: 11/20/2016 12:38 - Assessment (1) ARF (acute renal failure) N17.9 - ACUTE KIDNEY FAILURE, UNSPECIFIED Acute Present on Admission: Yes Qualifiers: Acute renal failure type: with other specified pathological lesion Qualified Code(s): N17.8 - Other acute kidney failure Admit, begin IV fluids, monitor BMP, obtain culture specimens to rule out infections. (2) UTI (urinary tract infection) N39.0 - URINARY TRACT INFECTION, SITE NOT SPECIFIED Acute Present on Admission: Yes Qualifiers: Urinary tract infection type: acute cystitis Hematuria presence: with hematuria Indwelling urinary catheter type: I Encounter type: E Qualified Code(s): N30.01 - Acute cystitis with hematuria Culture blood and urine, begin IV Levaquin (patient allergic to PCN and sulfa). Await culture results. Keep patient well hydrated. (3) Dehydration E86.0 - DEHYDRATION Resolved Present on Admission: Yes Continue IV fluids, (4) Acute delirium R41.0 - DISORIENTATION, UNSPECIFIED Acute Present on Admission: Yes Mild, this will probably improve some with hydration. Re-evaluate mental status after adequate IV fluid resuscitation. There is probably some underlying dementia also. (5) Anemia D64.9 - ANEMIA, UNSPECIFIED Acute Present on Admission: Yes Qualifiers: Anemia type: unspecified type Iron deficiency anemia type: I Vitamin B12 deficiency anemia type: V Folate deficiency anemia type: F Bone marrow failure anemia type: B Hemolytic anemia type: H Other causes of anemia: O Qualified Code(s): D64.9 - Anemia, unspecified Monitor H/H; watch stools for occult blood. (6) Tachycardia R00.0 - TACHYCARDIA, UNSPECIFIED Resolved Present on Admission: Yes Continue telemetry monitoring. Keep K more than 4 and magnesium more than 2. (7) Abdominal pain R10.9 - UNSPECIFIED ABDOMINAL PAIN Acute Present on Admission: Yes Qualifiers: Abdominal location: generalized Qualified Code(s): R10.84 - Generalized abdominal pain Nonspecific- probably related to UTI. Case Care Discussed with: Patient, Family, Nursing Staff, Resource Management Total Time: 65 min Critical Care: No Couseling Time (>50% in counseling/coordination): Yes Code: 24663
[2016-11-20] MEDS ORDERED: ENOXAPARIN 30 MG/0.3 ML PFS SQ SCH (18:00)
[2016-11-20] MEDS: NS 1,000 ML IV SCH ×3 (18:45→23:03)
[2016-11-20] MEDS: REGULAR INSULIN 100 UNITS/ML - 3 ML VIAL SQ SCH (19:01)
[2016-11-20] MEDS: SODIUM CHLORIDE 0.9% 3 ML FLUSH FLUSH SCH (20:34)
[2016-11-20] MEDS: PRAMIPEXOLE 0.125 MG TAB PO SCH (21:10)
[2016-11-21] MEDS: NS 1,000 ML IV SCH ×3 (03:07→21:24)
[2016-11-21] MEDS: PANTOPRAZOLE 40 MG TAB PO SCH (06:29)
[2016-11-21] MEDS: PRAMIPEXOLE 0.125 MG TAB PO SCH ×3 (06:33→21:25)
[2016-11-21 07:06] LABS: AUTOMATED BASOPHIL 0.2 % (0-2); AUTOMATED EOSINOPHIL 0.7 % (0-5); AUTOMATED NEUTROPHIL 69.1 % (45-76); MPV 7.9 fL (7.4-10.4)
[2016-11-21 07:08] LABS: BLOOD UREA NITROGEN 24 MG/DL (7-17); CALCIUM 7.9 MG/DL (8.4-10.2); CALCULATED OSMOLALITY 274 MOs/Kg (270-290); CHLORIDE 117 mEq/L (98-107); GLUCOSE 83 MG/DL (70-99); SODIUM LEVEL 141 mEq/L (137-146)
[2016-11-21] MEDS: MEGESTROL ACETATE 40 MG TAB PO SCH (09:05)
[2016-11-21] MEDS: DESVENLAFAXINE 50 MG PO SCH (09:05)
[2016-11-21] MEDS: EXT REL PO SCH (09:05)
[2016-11-21] MEDS: RANITIDINE 150 MG TAB PO SCH (09:05)
[2016-11-21] MEDS: FUROSEMIDE 20 MG TAB PO SCH (09:05)
[2016-11-21] MEDS: LOSARTAN KCL/HCTZ 50-12.5 TAB PO SCH (09:05)
[2016-11-21] MEDS: REGULAR INSULIN 100 UNITS/ML - 3 ML VIAL SQ SCH (10:34)
[2016-11-21] MEDS ORDERED: LABETALOL 20 MG/4 ML SYRINGE IV PRN (10:44)
[2016-11-21] MEDS: CARVEDILOL 6.25 MG TAB PO SCH ×2 (11:26→21:25)
[2016-11-21] MEDS ORDERED: Vaccine Screening Complete SCH (13:00)
[2016-11-21] MEDS: ENOXAPARIN 40 MG/0.4 ML PFS SQ SCH (19:07)
--- NOTE | 2016-11-21 19:24 | GENMEDPROG ---
Chief Complaint: ARF, UTI, dehydration, - Physical Examination Vital Signs and I&O: Last Vital Signs Temp 98.3 F 11/21/16 17:56 Pulse 80 11/21/16 17:56 Resp 20 11/21/16 17:56 BP 152/67 11/21/16 17:56 Pulse Ox 98 11/21/16 10:35 Oxygen Pulse Oxygen Saturation 98 O2 Device Room Air Oxygen Flow Rate Fraction of Inspired Oxygen ( FIO2) Intake & Output 11/18/16 11/19/16 11/20/16 11/21/16 23:59 23:59 23:59 23:59 Intake Total 610 2500 Output Total 1025 1100 Balance -415 1400 Patient's weight 55.792 kg Lymphatics: Normal Respiratory: Normal - CTA, Diminished. negative: Tachypnea, Wheezes - Assessment (1) ARF (acute renal failure) Acute N17.9 - ACUTE KIDNEY FAILURE, UNSPECIFIED Qualifiers: Acute renal failure type: with other specified pathological lesion Qualified Code(s): N17.8 - Other acute kidney failure Comment/Plan: Admit, begin IV fluids, monitor BMP, obtain culture specimens to rule out infections. (2) UTI (urinary tract infection) Acute N39.0 - URINARY TRACT INFECTION, SITE NOT SPECIFIED Qualifiers: Urinary tract infection type: acute cystitis Hematuria presence: with hematuria Indwelling urinary catheter type: I Encounter type: E Qualified Code(s): N30.01 - Acute cystitis with hematuria Comment/Plan: Culture blood and urine, begin IV Levaquin (patient allergic to PCN and sulfa). Await culture results. Keep patient well hydrated. (3) Dehydration Resolved E86.0 - DEHYDRATION Comment/Plan: Continue IV fluids, (4) Acute delirium Acute R41.0 - DISORIENTATION, UNSPECIFIED Comment/Plan: Mild, this will probably improve some with hydration. Re-evaluate mental status after adequate IV fluid resuscitation. There is probably some underlying dementia also. (5) Anemia Acute D64.9 - ANEMIA, UNSPECIFIED Qualifiers: Anemia type: unspecified type Iron deficiency anemia type: I Vitamin B12 deficiency anemia type: V Folate deficiency anemia type: F Bone marrow failure anemia type: B Hemolytic anemia type: H Other causes of anemia: O Qualified Code(s): D64.9 - Anemia, unspecified Comment/Plan: Monitor H/H; watch stools for occult blood. (6) Tachycardia Resolved R00.0 - TACHYCARDIA, UNSPECIFIED Comment/Plan: Continue telemetry monitoring. Keep K more than 4 and magnesium more than 2. (7) Abdominal pain Acute R10.9 - UNSPECIFIED ABDOMINAL PAIN Qualifiers: Abdominal location: generalized Qualified Code(s): R10.84 - Generalized abdominal pain Comment/Plan: Nonspecific- probably related to UTI.
[2016-11-22] MEDS: NS 1,000 ML IV SCH ×3 (05:17→22:51)
[2016-11-22] MEDS: PANTOPRAZOLE 40 MG TAB PO SCH (06:23)
[2016-11-22] MEDS: PRAMIPEXOLE 0.125 MG TAB PO SCH ×3 (06:24→20:53)
[2016-11-22] MEDS: EXT REL PO SCH (09:19)
[2016-11-22] MEDS: MEGESTROL ACETATE 40 MG TAB PO SCH (09:19)
[2016-11-22] MEDS: DESVENLAFAXINE 50 MG PO SCH (09:19)
[2016-11-22] MEDS: CARVEDILOL 6.25 MG TAB PO SCH ×2 (09:19→20:53)
[2016-11-22] MEDS: RANITIDINE 150 MG TAB PO SCH (09:19)
[2016-11-22] MEDS: FUROSEMIDE 20 MG TAB PO SCH (09:19)
[2016-11-22] MEDS: LOSARTAN KCL/HCTZ 50-12.5 TAB PO SCH (09:19)
[2016-11-22] MEDS: REGULAR INSULIN 100 UNITS/ML - 3 ML VIAL SQ SCH ×2 (10:27→18:17)
--- NOTE | 2016-11-22 10:48 | GENMEDPROG ---
Chief Complaint: EARLENE, dehydration, UTI, dementia, ambulatory dysfunction Currently: Reports: MCCAULEY. Denies: Abdominal Pain, Fever/Chills, Ambulating DVT Prophylaxis: Yes - Physical Examination Vital Signs and I&O: Last Vital Signs Temp 98 F 11/22/16 09:58 Pulse 69 11/22/16 09:58 Resp 18 11/22/16 09:58 BP 140/63 11/22/16 09:58 Pulse Ox 98 11/22/16 09:58 Oxygen Pulse Oxygen Saturation 98 O2 Device Room Air Oxygen Flow Rate Fraction of Inspired Oxygen ( FIO2) Intake & Output 11/19/16 11/20/16 11/21/16 11/22/16 23:59 23:59 23:59 23:59 Intake Total 610 2500 1575 Output Total 1025 1300 600 Balance -415 1200 975 Patient's weight 55.792 kg General: Alert, Cooperative, No acute distress, Weakness, Fatigue. negative: Oriented x3 HEENT: Normal, PERRLA, EOMI, Anicteric Sclera, Mucous membr. moist/pink, Pallor Neck: Full range of motion, Normal Trachea alignment, Normal inspection, No Masses palpable Lymphatics: Normal Respiratory: Normal - CTA, Diminished. negative: Tachypnea, Wheezes Cardiovascular: Regular rate and rhythm, Normal S1, Normal S2, Irregular GI: Normal bowel sounds, Soft, Non tender, No masses Extremities/Musculoskeletal: Normal pulses, DJD, FROM. negative: Edema Skin: Warm,Dry and Intact, No rashes, No breakdown Neurological: Normal speech, Normal tone, Cranial nerves 3-12 NL Psych/Mental Status: Appropriate, Normal Affect, Cooperative Lab/DI/Studies Reviewed: Microbiology 11/20/16 12:30 Urine - Clean Catch - Midstream Urine Culture - Preliminary Yeast Unidentified Organism--possible Enterococcus Unidentified Organism#2- gram negative som - Assessment (1) ARF (acute renal failure) Acute N17.9 - ACUTE KIDNEY FAILURE, UNSPECIFIED Qualifiers: Acute renal failure type: with other specified pathological lesion Qualified Code(s): N17.8 - Other acute kidney failure Comment/Plan: Continue IV fluids, monitor BMP, obtain culture specimens to rule out infections. (2) UTI (urinary tract infection) Acute N39.0 - URINARY TRACT INFECTION, SITE NOT SPECIFIED Qualifiers: Urinary tract infection type: acute cystitis Hematuria presence: with hematuria Indwelling urinary catheter type: I Encounter type: E Qualified Code(s): N30.01 - Acute cystitis with hematuria Comment/Plan: Culture blood and urine, continue IV Levaquin (patient allergic to PCN and sulfa). Await culture results (preliminary report only available). Add diflucan for yeast coverage. Keep patient well hydrated. (3) Dehydration Resolved E86.0 - DEHYDRATION Comment/Plan: Continue IV fluids, (4) Acute delirium Acute R41.0 - DISORIENTATION, UNSPECIFIED Comment/Plan: Mild, this will probably improve some with hydration. Re-evaluate mental status after adequate treatment for UTI. There is probably some underlying dementia also. Plan for transfer to [facility] in AM for short term rehab and continued treatment of UTI. (5) Anemia Acute D64.9 - ANEMIA, UNSPECIFIED Qualifiers: Anemia type: unspecified type Iron deficiency anemia type: I Vitamin B12 deficiency anemia type: V Folate deficiency anemia type: F Bone marrow failure anemia type: B Hemolytic anemia type: H Other causes of anemia: O Qualified Code(s): D64.9 - Anemia, unspecified Comment/Plan: Monitor H/H; watch stools for occult blood. (6) Tachycardia Resolved R00.0 - TACHYCARDIA, UNSPECIFIED Comment/Plan: Continue telemetry monitoring. Keep K more than 4 and magnesium more than 2. (7) Abdominal pain Acute R10.9 - UNSPECIFIED ABDOMINAL PAIN Qualifiers: Abdominal location: generalized Qualified Code(s): R10.84 - Generalized abdominal pain Comment/Plan: Nonspecific- probably related to UTI. Case Care Discussed with: Patient, Family, Nursing Staff Education/Counseling Given To: Patient, Family Member Education/Counseling Given Regarding: Diagnosis, Treatment, Prognosis Total Time: 30 min Critical Care: No Couseling Time (>50% in counseling/coordination): No Code: 80309 (12+)
[2016-11-22] MEDS ORDERED: METOCLOPRAMIDE 10 MG/2 ML VIAL IV PRN (13:15)
[2016-11-22] MEDS ORDERED: Levofloxacin 750 mg/150 ml D5W 750 MG/150 ML RTU IV SCH (14:00)
[2016-11-22] MEDS: ENOXAPARIN 40 MG/0.4 ML PFS SQ SCH (18:25)
[2016-11-22] MEDS: FLUCONAZOLE 100 MG TAB PO SCH (20:53)
[2016-11-23] MEDS: PANTOPRAZOLE 40 MG TAB PO SCH (06:01)
[2016-11-23] MEDS: SODIUM CHLORIDE 0.9% 3 ML FLUSH FLUSH SCH (06:01)
[2016-11-23] MEDS: PRAMIPEXOLE 0.125 MG TAB PO SCH ×2 (06:01→14:04)
[2016-11-23] MEDS: NS 1,000 ML IV SCH ×2 (06:54→15:04)
[2016-11-23] MEDS: REGULAR INSULIN 100 UNITS/ML - 3 ML VIAL SQ SCH ×2 (07:00→17:21)
[2016-11-23] MEDS: LOSARTAN KCL/HCTZ 50-12.5 TAB PO SCH (08:58)
[2016-11-23] MEDS: EXT REL PO SCH (08:58)
[2016-11-23] MEDS: FUROSEMIDE 20 MG TAB PO SCH (08:58)
[2016-11-23] MEDS: DESVENLAFAXINE 50 MG PO SCH (08:58)
[2016-11-23] MEDS: MEGESTROL ACETATE 40 MG TAB PO SCH (08:58)
[2016-11-23] MEDS: CARVEDILOL 6.25 MG TAB PO SCH (08:58)
[2016-11-23] MEDS: FLUCONAZOLE 100 MG TAB PO SCH (08:59)
[2016-11-23] MEDS ORDERED: RANITIDINE 150 MG TAB PO SCH (09:00)
--- NOTE | 2016-11-23 16:03 | PCM.DCS92 ---
- Final/Secondary Discharge Diagnosis (1) ARF (acute renal failure) Acute N17.9 - ACUTE KIDNEY FAILURE, UNSPECIFIED Present on Admission: Yes with other specified pathological lesion N17.8 - Other acute kidney failure Comment: Due to dehydration. Now resolved. (2) Acute delirium Acute R41.0 - DISORIENTATION, UNSPECIFIED Present on Admission: Yes Comment: Mild, this will probably improve some with hydration. Re-evaluate mental status after adequate treatment for UTI. There is probably some underlying dementia also. Plan for transfer to [facility] in AM for short term rehab and continued treatment of UTI. (3) UTI (urinary tract infection) Acute N39.0 - URINARY TRACT INFECTION, SITE NOT SPECIFIED Present on Admission: Yes acute cystitis with hematuria I E N30.01 - Acute cystitis with hematuria Comment: Very low colony counts. Continue Diflucan and add Macrobid. (4) Abdominal pain Acute R10.9 - UNSPECIFIED ABDOMINAL PAIN Present on Admission: Yes generalized R10.84 - Generalized abdominal pain Comment: Denies currently (5) Anemia Acute D64.9 - ANEMIA, UNSPECIFIED Present on Admission: Yes unspecified type I V F B H O D64.9 - Anemia, unspecified Comment: Monitor H/H; watch stools for occult blood. (6) Dehydration Resolved E86.0 - DEHYDRATION Present on Admission: Yes Comment: Continue IV fluids, (7) Tachycardia Resolved R00.0 - TACHYCARDIA, UNSPECIFIED Present on Admission: Yes Comment: Continue telemetry monitoring. Keep K more than 4 and magnesium more than 2. Discharge Disposition: [facility] Facility Discharge Condition: Improved Cognitive Discharge Status: Unimpaired Fuctional Discharge Status: Independent Physician Follow up/Referrals: Isidro Yi MD [Primary Care Provider] - One Week Home Medications / New Prescriptions: New Fluconazole [Diflucan] 100 mg PO DAILY #3 tablet Nitrofurantoin [Macrobid] 100 mg PO BID #10 cap Continue Pramipexole Di-HCl [Mirapex] 0.25 mg PO TID Omeprazole 40 mg PO DAILY Ranitidine HCl 300 mg PO DAILY Estrogens,Conjugated [Premarin] 0.625 mg PO DAILY Furosemide [Lasix] 20 mg PO DAILY #30 tablet Mirtazapine 15 mg PO QHS PRN PRN Reason: Sleep Or Insomnia Losartan/Hydrochlorothiazide [Losartan-Hctz 50-12.5 mg Tab] 1 tab PO DAILY Desvenlafaxine Succinate [Pristiq] 50 mg PO DAILY CloNIDine (Antihypertensive) [Catapres] 0.1 mg PO DAILY PRN #30 tab PRN Reason: Sbp Above 160 Megestrol Acetate [Megace] 40 mg PO DAILY #30 tab Discontinued Etodolac 400 mg PO BID Discharge Home Medication List Omeprazole 40 mg PO DAILY 04/28/16 [History Confirmed 11/20/16 Last Taken ] Pramipexole Di-HCl [Mirapex] 0.25 mg PO TID 04/28/16 [History Confirmed Last Taken 11/05/16] Ranitidine HCl 300 mg PO DAILY 04/28/16 [History Confirmed 11/20/16 Last Taken 11/05/16] Estrogens,Conjugated [Premarin] 0.625 mg PO DAILY 09/06/16 [History Confirmed Last Taken 11/05/16] Furosemide [Lasix] 20 mg PO DAILY #30 tablet 09/19/16 [Rx Confirmed 11/20/16 Last Taken 11/05/16] CloNIDine (Antihypertensive) [Catapres] 0.1 mg PO DAILY PRN #30 tab 11/05/16 [ Rx Confirmed 11/20/16 Last Taken Unknown] Desvenlafaxine Succinate [Pristiq] 50 mg PO DAILY 11/05/16 [History Confirmed Last Taken 11/05/16] Losartan/Hydrochlorothiazide [Losartan-Hctz 50-12.5 mg Tab] 1 tab PO DAILY 11/05 [History Confirmed 11/20/16 Last Taken 11/05/16] Megestrol Acetate [Megace] 40 mg PO DAILY #30 tab 11/05/16 [Rx Confirmed Last Taken Unknown] Mirtazapine 15 mg PO QHS PRN 11/05/16 [History Confirmed 11/20/16 Last Taken Unknown] Fluconazole [Diflucan] 100 mg PO DAILY #3 tablet 11/23/16 [Rx Last Taken Unknown ] Nitrofurantoin [Macrobid] 100 mg PO BID #10 cap 11/23/16 [Rx Last Taken Unknown] O2 Device: Room Air Diet at Discharge: As Tolerated Activity: As Tolerated Call Office For: Worsening Symptoms - DC Summary Notes Hospital Course Note:: Discharge summary on patient named TYRONE MCKINLEY admitted to [facility] on 11/20/16 by Aletha Jacobson MD. Date of discharge is []. Ms. Mckinley is an 86-year-old white female multiple chronic medical problems including congestive heart failure and dementia who is had multiple hospitalizations over the course of the last 2 months for cellulitis and small- bowel obstruction that required surgery by Dr. Ackerman. She was brought to the emergency room approximately 1 week after being discharged from [facility] with increasing lethargy, weakness and inability to ambulate. She is found to have very mild urinary tract infection but was dehydrated with a BUN and creatinine of 36 and 1.1. She was admitted to the hospital and gently hydrated. Her lethargy has improved significantly but she remains weak. Urine cultures have grown out yeast, Enterococcus and hafnia alvei. However these were all low colony-forming units. Overall she is much better but have recommended going back to assisted facility. Her who was in a wheelchair still hopes to be able to care for her at home but she needs to be more ambulatory. I suspect she is nearing the point where she will need long- term assisted facility placement but they want to continue to try rehab for now. She will be discharged to assisted facility for further evaluation management. Total Time: 45 minutes - Physical Exam Vital Signs: Last Vital Signs Temp 98.6 F 11/23/16 14:13 Pulse 75 11/23/16 14:13 Resp 16 11/23/16 14:13 BP 137/63 11/23/16 14:13 Pulse Ox 97 11/23/16 14:13 Oxygen Pulse Oxygen Saturation 97 O2 Device Room Air Oxygen Flow Rate Fraction of Inspired Oxygen ( FIO2) Constitutional: No apparent distress, Alert, Well nourished, Well appearing Oriented to: Time, Person, Place - HEENT Head: Normal Eye: Normal (PERRL:EOMI) Oropharynx: Membranes Dry. negative: Drooling, Exudate, Red Tympanic Membrane: Normal, Dull ENT EAC: negative: Cerumen Nose: No Symptoms Reported. negative: Bleeding, Congestion, Discharge - Respiratory/Cardiovascular Respiratory: Normal - CTA, Diminished. negative: Tachypnea, Wheezes - GI Auscultation: Normal Palpation: Normal (soft, nondistended, no mass,). negative: Enlarged liver, Enlarged spleen, Fluid Wave Tenderness: Non tender. negative: Guarding, Rebound, Rigidity Tompkins's Sign: Negative Rectal Exam: Deferred Stool: Brown - Musculoskeletal Back: Normal Extremities: Normal - Integumentary Skin: Warm, Dry Lymphatics: Normal - Neurologic Memory Impaired: Short-term Motor Function: Normal Cranial Nerve: Normal Cerebellar: Normal Mood Description: Depressed, Flat Thought: Coherent (forgetful) Perception: Normal
[2016-11-23 17:31] VITALS: BP 140/64; PULSE 73; TEMP 98.9
[2016-11-23] MEDS: ENOXAPARIN 40 MG/0.4 ML PFS SQ SCH (17:49)
== END 2016-11-23 18:02 | DRG 683 ==
LOC: ED 11:23 → EDINP 15:06 → MPS3 16:09 → EDINP 16:29 → TUOBSINP 19:38 → MASU 22:10
PROVIDERS: ADMIT Family Medicine; ATTEND Hospitalist
PROC: 039B3ZZ Drainage of Right Radial Artery, Percutaneous Approach (ICD-10-PCS; principal; 2016-11-20)
DX: N17.8 Other acute kidney failure (principal); N30.01 Acute cystitis with hematuria; I50.9 Heart failure, unspecified; F03.90 Unspecified dementia, unspecified severity, without behavioral disturbance, psychotic disturbance, mood disturbance, and anxiety; E86.0 Dehydration; R41.0 Disorientation, unspecified; D64.9 Anemia, unspecified; R00.0 Tachycardia, unspecified; B95.2 Enterococcus as the cause of diseases classified elsewhere; B96.89 Other specified bacterial agents as the cause of diseases classified elsewhere; I10 Essential (primary) hypertension; I51.9 Heart disease, unspecified; Z87.440 Personal history of urinary (tract) infections; K21.9 Gastro-esophageal reflux disease without esophagitis; M19.90 Unspecified osteoarthritis, unspecified site; F41.9 Anxiety disorder, unspecified; Z88.2 Allergy status to sulfonamides; Z88.0 Allergy status to penicillin; Z88.5 Allergy status to narcotic agent; Z79.899 Other long term (current) drug therapy
CPT/HCPCS: 36415; 36600; 70450; 71010; 80048; 80053; 81001; 82272; 82570; 82803; 82962; 83605; 84484; 85025; 85610; 85730; 87040; 87077; 87086; 87186; 93005; 96365; 96366; 96372; 97162; 99285; G0237; J1650; J1956; J3490